=== PATIENT | male | born 1995 | race Two or more races ===

== ENCOUNTER 2022-07-24 12:34 | Emergency (ER) | payer SELFPAY ==
[~2022-07-24] VITALS: Ht 180.3 cm; Wt 59.0 kg
[2022-07-24 13:08] VITALS: BP 126/57
[2022-07-24] MEDS ORDERED: VISCOUS LIDOCAINE 2% 15 ML UDC PO STA (15:06)
[2022-07-24] MEDS ORDERED: MAGNESIUM/ALUMINUM HYDROXIDE/SIMETHICONE 30ML UDC PO STA (15:06)
[2022-07-24] MEDS ORDERED: FAMOTIDINE 20MG TABLET PO ONE (15:15)
[2022-07-24 19:08] LABS: BASOPHILS % 0.5 % (0.0-2.0); EOSINOPHILS % 1.9 % (0.0-5.0); HEMATOCRIT. 42.1 % (42.0-52.0); HEMOGLOBIN. 14.1 g/dL (14.0-18.0); LYMPHOCYTES % 41.3 % (20.0-50.0); MEAN CORPUSCULAR HEMOGLOBIN 29.4 pg (28.0-32.0); MEAN PLATELET VOLUME 7.6 fl (7.4-10.4); MONOCYTES % 9.4 % (2.0-8.0); NEUTROPHILS % 46.9 % (40.0-76.0); PLATELET 215 x1000/uL (130-400); RED BLOOD CELL COUNT 4.79 mill/uL (4.7-6.1); RED CELL DISTRIBUTION WIDTH 14.4 % (11.6-14.6)
[2022-07-24 19:11] LABS: CHLORIDE 105 mEq/L (98-107)
== END 2022-07-24 19:47 | disposition home or self-care (01) ==
LOC: ER 14:20
DX: R10.13 Epigastric pain (principal)
CPT/HCPCS: 36415; 71045; 74176; 80053; 85025; 99285

== ENCOUNTER 2022-08-27 13:09 | Emergency (ER) | payer MEDICAID ==
[~2022-08-27] VITALS: Ht 180.3 cm; Wt 65.0 kg
[2022-08-27 13:16] VITALS: BP 107/73
[2022-08-27] MEDS ORDERED: NIRM1TAB PO (14:55)
== END 2022-08-27 15:15 | disposition home or self-care (01) ==
LOC: ER 13:09
DX: U07.1 COVID-19 (principal)
CPT/HCPCS: 99283